=== PATIENT | female | born 1985 | race African-American/Black ===

== ENCOUNTER → 2023-11-26 | Emergency (ER) | payer MEDICAID, OTHER ==
[~2023-11-26] VITALS: Ht 152.4 cm; Wt 49.9 kg
[2023-11-26 22:36] VITALS: BP 143/96; PULSE 118; RESP 18; TEMP 97.4; O2SAT 99
== END | disposition left against medical advice (07) ==
LOC: MED 22:33
DX: O26.891 Other specified pregnancy related conditions, first trimester (principal); R10.32 Left lower quadrant pain; Z3A.01 Less than 8 weeks gestation of pregnancy; V89.2XXA Person injured in unspecified motor-vehicle accident, traffic, initial encounter; Y93.89 Activity, other specified; Y92.410 Unspecified street and highway as the place of occurrence of the external cause; Y99.8 Other external cause status
CPT/HCPCS: 99281; J7030